=== PATIENT | male | born 1950 | race Caucasian/White ===

== ENCOUNTER 2020-06-08 07:00 | Day surgery (SDC) | payer OTHER | END 2020-06-08 14:55 | disposition home or self-care (01) | LOC: AMB-ENDOS 07:00 → EDBD 13:45 → ADM 13:45 → AMB-ENDOS 13:45 | PROVIDERS: ATTEND Surgery | DX: K62.89 Other specified diseases of anus and rectum (principal); Z20.828 Contact with and (suspected) exposure to other viral communicable diseases ==